=== PATIENT | male | born 1975 | race Asian ===

== ENCOUNTER 2020-08-29 09:41 | Emergency (ER) | payer BC ==
[~2020-08-29] VITALS: Ht 172.7 cm; Wt 122.5 kg
[2020-08-29 09:46] VITALS: BP 153/104; TEMP 98.1
== END 2020-08-29 10:49 | disposition home or self-care (01) ==
LOC: ED 09:41
DX: S60.222A Contusion of left hand, initial encounter (principal); S16.1XXA Strain of muscle, fascia and tendon at neck level, initial encounter; V43.92XA Unspecified car occupant injured in collision with other type car in traffic accident, initial encounter; Y92.89 Other specified places as the place of occurrence of the external cause
CPT/HCPCS: 99283

== ENCOUNTER 2023-01-10 09:44 | Emergency (ER) | payer BC ==
[~2023-01-10] VITALS: Ht 172.7 cm; Wt 127.9 kg
[2023-01-10 09:50] VITALS: TEMP 98.2
[2023-01-10 10:43] VITALS: BP 166/95
== END 2023-01-10 10:44 | disposition home or self-care (01) ==
LOC: ED 09:44
DX: K02.9 Dental caries, unspecified (principal); K05.30 Chronic periodontitis, unspecified; K08.89 Other specified disorders of teeth and supporting structures
CPT/HCPCS: 96372; 99283; J0696; J1885